=== PATIENT | male | born 1955 | race Caucasian/White ===

== ENCOUNTER 2017-11-19 21:13 | Emergency (ER) | payer OTHER ==
[~2017-11-19] VITALS: Ht 177.8 cm; Wt 136.1 kg
[2017-11-19 21:37] LABS: ABSOLUTE NEUTROPHILS 9.1 thou/uL (1.4-8.2); EOSINOPHILS 0.4 % (0.0-3.0); HEMATOCRIT 42.5 % (42.0-52.0); HEMOGLOBIN 14.4 gm/dL (14.0-18.0); LYMPHOCYTES 4.7 % (24.0-44.0); MCH 30.6 pg (26.0-34.0); MCHC 33.9 g/dL (28.0-37.0); MCV 90.1 fL (80.0-100.0); MONOCYTES 5.2 % (1.0-8.0); PLATELET COUNT 153 thou/uL (150-400); POLYS 88.7 % (36.0-66.0); RBC 4.72 mil/uL (4.50-6.00); RDW 15.9 % (10.5-14.5); WBC 10.3 thou/uL (4.0-11.0)
[2017-11-19 21:45] LABS: CALCIUM 8.6 mg/dL (8.5-10.1); CREATININE 2.3 mg/dL (0.7-1.3); POTASSIUM 3.6 mmol/L (3.5-5.1)
[2017-11-19 21:51] LABS: ALBUMIN 3.5 g/dL (3.4-5.0); TOTAL BILIRUBIN 1.1 mg/dL (<0.1-1.0)
[2017-11-19 22:03] LABS: ALBUMIN 3.6 g/dL (3.4-5.0); DIRECT BILIRUBIN 0.2 mg/dL (<0.1-0.3); TOTAL BILIRUBIN 1.1 mg/dL (<0.1-1.0); TOTAL PROTEIN 8.1 g/dL (6.4-8.2)
[2017-11-19] MEDS ORDERED: AUGMENTIN 875-1 EACH PO (22:35)
[2017-11-19 22:45] LABS: URINE BILIRUBIN NEGATIVE (Negative); URINE BLOOD TRACE (Negative); URINE CLARITY CLEAR; URINE COLOR YELLOW; URINE GLUCOSE-RANDOM* NEGATIVE (Negative); URINE KETONES NEGATIVE (Negative); URINE LEUKOCYTES-REFLEX NEGATIVE (Negative); URINE NITRITE-REFLEX NEGATIVE (Negative); URINE PROTEIN (DIPSTICK) 3+ (Negative); URINE SPECIFIC GRAVITY 1.025 (1.005-1.035); URINE UROBILINOGEN 0.2 E.U./dl (0.2-1.0)
[2017-11-19] MEDS ORDERED: TOPROL XL100 MG PO (22:57)
[2017-11-19 22:58] LABS: MUCUS 0-3 Light strn/LPF (None Seen); SQUAMOUS >10 Many /LPF (0-3); URINE RBC 0-2 Rare /HPF (0-2); URINE WBC-REFLEX 0-5 Rare /HPF (0-5)
[2017-11-19] MEDS ORDERED: METOPROLOL SUC100 MG PO (22:58)
[2017-11-19 22:59] LABS: BACTERIA-REFLEX 1-9 Few /HPF (None Seen); CASTS None Seen /LPF (None Seen); CRYSTALS None Seen /LPF (None Seen)
[2017-11-19] MEDS ORDERED: GABAPENTIN 100100 MG PO (22:59)
[2017-11-19] MEDS ORDERED: HYDRALAZINE 10M10 MG (23:00)
[2017-11-19] MEDS ORDERED: LIPITOR80 MG PO (23:00)
[2017-11-19] MEDS ORDERED: LASIX 40 MG TAB40 M2 PO (23:01)
[2017-11-19] MEDS ORDERED: JANTOVEN5 MG PO (23:03)
[2017-11-19] MEDS ORDERED: ALLOPURINOL 10100 M1 PO (23:03)
[2017-11-19] MEDS ORDERED: DIGOXIN125 MCG (23:04)
[2017-11-19 23:36] VITALS: BP 140/88
== END 2017-11-19 23:50 | disposition home or self-care (01) ==
LOC: ER 21:13
PROVIDERS: Emergency Medicine; Physician Assistant
DX: J18.9 Pneumonia, unspecified organism (principal); N18.9 Chronic kidney disease, unspecified; R11.0 Nausea; I50.9 Heart failure, unspecified; I48.91 Unspecified atrial fibrillation; Z95.0 Presence of cardiac pacemaker